=== PATIENT | female | born 1955 | race Caucasian/White ===

== ENCOUNTER 2018-05-27 15:41 | Emergency (ER) | payer BC ==
[~2018-05-27] VITALS: Ht 160 cm; Wt 82.1 kg
[2018-05-27 16:12] LABS: HEMATOCRIT 45.5 % (36.0-46.0); HEMOGLOBIN 15.7 G/DL (11.9-15.5); MCHC 34.5 G/DL (30.0-36.0); PLATELET COUNT 254 K/uL (156-360); RBC DIS.WIDTH-CV 13.7 % (11.8-14.6); RBC DIS.WIDTH-SD 43.8 % (39-53); RED BLOOD COUNT 5.23 M/uL (3.80-5.20); WHITE BLOOD COUNT 13.5 K/uL (4.1-10.2)
[2018-05-27 16:21] LABS: ALBUMIN 4.3 g/dL (3.2-4.8)
[2018-05-27 16:22] LABS: CHLORIDE 106 mEq/L (99-109); POTASSIUM 4.1 mEq/L (3.7-5.4); SODIUM 139 mEq/L (136-147)
[2018-05-27 16:23] LABS: GLUCOSE 96 mg/dL (70-99); TOTAL PROTEIN 7.5 g/dL (6.4-8.3)
[2018-05-27 16:25] LABS: TOTAL BILIRUBIN 0.4 mg/dL (0.0-1.0)
[2018-05-27 16:27] LABS: ALKALINE PHOSPHATASE 156 IU/L (3-129)
[2018-05-27 16:28] LABS: UREA NITROGEN (BUN) 18 mg/dL (9-23)
[2018-05-27 16:29] LABS: AST (GOT) 64 IU/L (2-34)
[2018-05-27 16:30] LABS: ALT (GPT) 73 IU/L (3-49); LIPASE 25 U/L (1.0-51.0)
[2018-05-27 16:33] LABS: GFR ESTIMATE (CALCULATED) > 59 mL/min/
[2018-05-27 16:40] LABS: TROP-I INTERPRETATION NEGATIVE; TROPONIN-I < 0.01 ng/mL (0.0-0.30)
[2018-05-27 18:44] LABS: APPEARANCE CLEAR ((CLEAR)); BILIRUBIN NEGATIVE; BLOOD SMALL; COLOR YELLOW ((YELLOW)); GLUCOSE (STRIP) NEGATIVE; KETONES NEGATIVE; LEUKOCYTES NEGATIVE; NITRITE NEGATIVE; PROTEIN (STRIP) NEGATIVE; SPECIFIC GRAVITY 1.054 (1.000-1.030); UROBILINOGEN 0.2 MG/DL (0.2-1.0)
[2018-05-27 18:54] LABS: BACTERIA RARE /HPF; EPITHELIAL CELLS RARE /HPF; MUCUS TRACE /LPF; RED BLOOD CELLS 0-5 /HPF (0-5); UCUL ADDED? NO; WHITE BLOOD CELLS 0-5 /HPF (0-5)
[2018-05-27 19:50] LABS: TROP-I INTERPRETATION NEGATIVE; TROPONIN-I < 0.01 ng/mL (0.0-0.30)
[2018-05-27] MEDS ORDERED: ZOFRAN4 MG PO (20:13)
[2018-05-27] MEDS ORDERED: BENTYL20 MG PO (20:13)
[2018-05-27 20:31] VITALS: BP 120/76
== END 2018-05-27 20:34 | disposition home or self-care (01) ==
LOC: EME 15:41
PROVIDERS: Nurse Practitioner Family
DX: R10.11 Right upper quadrant pain (principal); K43.9 Ventral hernia without obstruction or gangrene; Z90.49 Acquired absence of other specified parts of digestive tract; K76.0 Fatty (change of) liver, not elsewhere classified; J44.9 Chronic obstructive pulmonary disease, unspecified; F17.200 Nicotine dependence, unspecified, uncomplicated; Z88.1 Allergy status to other antibiotic agents
CPT/HCPCS: 71046; 74177; 76705; 80053; 81003; 83690; 84484; 85027; 93005; 99281; 99284; J2405